=== PATIENT | male | born 1985 | race Caucasian/White ===

== ENCOUNTER 2021-03-21 00:16 | Emergency (ER) | payer OTHER ==
[~2021-03-21] VITALS: Ht 165.1 cm; Wt 77.1 kg
[2021-03-21 00:16] VITALS: BP 159/108
[2021-03-21 01:07] LABS: Basophils # (auto) 0.1 10 ^3/uL (0-0.2); Basophils % (auto) 0.9 % (0.0-2.0); Eosinophils # (auto) 0.2 10 ^3/uL (0-0.8); Eosinophils % (auto) 2.7 % (0.0-7.0); Hematocrit 45.7 % (41.0-53.0); Hemoglobin 15.9 g/dL (13.5-17.5); Lymphocytes # (auto) 2.4 10 ^3/uL (0.4-5.4); Lymphocytes % (auto) 34.9 % (10.0-50.0); Mean Corpuscular Hgb Conc. 34.8 g/dL (32.0-36.0); Mean Corpuscular Volume 86.1 fL (80.0-100.0); Monocytes # (auto) 0.4 10 ^3/uL (0-1.3); Monocytes % (auto) 5.8 % (0.0-12.0); Neutrophils # (auto) 3.8 10 ^3/uL (1.6-8.6); Neutrophils % (auto) 55.7 % (37.0-80.0); Nucleated Red Blood Cells % 0.1 %; Platelet Count (auto) 260 10^3/uL (140-450); Red Blood Cells 5.31 10^6/uL (4.5-5.90); Red Cell Distribution Width 12.8 % (11.8-14.3); White Blood Cell 6.7 10^3/uL (4.4-10.8)
[2021-03-21 01:23] LABS: Alanine Aminotransferase 43 U/L (16-61); Albumin 4.2 g/dL (3.4-5.0); Anion Gap 10 (5-15); Aspartate Aminotransferase 27 U/L (15-37); BUN/Creatinine Ratio 11.4; Blood Alcohol < 3.0 mg/dL (0-5); Blood Urea Nitrogen 9 mg/dL (7-18); Calcium 8.7 mg/dL (8.5-10.1); Carbon Dioxide 26 mmol/L (21-32); Chloride 104 mmol/L (98-107); GFR African American 145 mL/min; GFR Non-African American 120 mL/min; Glucose 118 mg/dL (74-106); Potassium 3.3 mmol/L (3.5-5.1); Sodium 140 mmol/L (136-145)
[2021-03-21 01:26] LABS: Alkaline Phosphatase 160 U/L (45-117); Bilirubin, Total 0.4 mg/dL (0.2-1.0); Total Protein 7.6 g/dL (6.4-8.2)
[2021-03-21 02:10] LABS: Urine Bacteria FEW /hpf (None Seen); Urine Blood Negative /uL (Negative); Urine Specific Gravity 1.018 (1.001-1.035); Urine WBC 1 /hpf (0 - 3)
[2021-03-21 02:20] LABS: Alcohol, Urine < 3.0 mg/dL (0-10); Amphetamine Screen, Urine NEGATIVE (NEGATIVE); Barbiturate Scree,Urine NEGATIVE (NEGATIVE); Benzodiazephine Screen, Urine NEGATIVE (NEGATIVE); Cannabinoid Screen, Urine NEGATIVE (NEGATIVE); Cocaine Screen, Urine NEGATIVE (NEGATIVE); Opiate Scree,Urine NEGATIVE (NEGATIVE); Phencyclidine Screen, Urine NEGATIVE (NEGATIVE)
== END 2021-03-21 02:48 | disposition home or self-care (01) ==
LOC: ER 00:21
DX: G47.00 Insomnia, unspecified (principal); F41.9 Anxiety disorder, unspecified
CPT/HCPCS: 36415; 80053; 80307; 80320; 81001; 85025

== ENCOUNTER 2022-07-22 19:54 | Emergency (ER) | payer MEDICAID, OTHER ==
[~2022-07-22] VITALS: Ht 165.1 cm; Wt 170.0 kg
[2022-07-22] MEDS ORDERED: amLODIPine BESYLATE 5 MG TAB PO ONE (21:30)
[2022-07-22 22:15] VITALS: BP 130/93
[2022-07-22] MEDS ORDERED: hydrOXYzine HCL 10 MG TAB PO ONE (22:15)
[2022-07-22] MEDS ORDERED: LORazepam 0.5 MG TAB PO ONE (22:15)
== END 2022-07-22 22:28 | disposition home or self-care (01) ==
LOC: ER 19:55
DX: I10 Essential (primary) hypertension (principal); F41.9 Anxiety disorder, unspecified; F32.9 Major depressive disorder, single episode, unspecified
CPT/HCPCS: 93005

== ENCOUNTER 2024-06-01 15:47 | Inpatient (IN) | payer MEDICAID, OTHER ==
[~2024-06-01] VITALS: Ht 165.1 cm; Wt 97.8 kg
[2024-06-01] MEDS ORDERED: HYDROcodone-ACET 10/325MG TAB PO ONE (16:15)
[2024-06-01 16:21] LABS: Basophils # (auto) 0.1 10 ^3/uL (0-0.2); Basophils % (auto) 1.2 % (0.0-2.0); Eosinophils # (auto) 0.1 10 ^3/uL (0-0.8); Eosinophils % (auto) 1.3 % (0.0-7.0); Hematocrit 44.9 % (41.0-53.0); Hemoglobin 15.5 g/dL (13.5-17.5); Lymphocytes # (auto) 2.3 10 ^3/uL (0.4-5.4); Lymphocytes % (auto) 26.6 % (10.0-50.0); Mean Corpuscular Hemoglobin 29.5 pg (28.0-32.0); Mean Corpuscular Hgb Conc. 34.5 g/dL (32.0-36.0); Mean Corpuscular Volume 85.4 fL (80.0-100.0); Monocytes # (auto) 0.5 10 ^3/uL (0-1.3); Monocytes % (auto) 5.6 % (0.0-12.0); Neutrophils # (auto) 5.7 10 ^3/uL (1.6-8.6); Neutrophils % (auto) 65.3 % (37.0-80.0); Nucleated Red Blood Cells % 0.1 %; Red Blood Cells 5.26 10^6/uL (4.5-5.90); Red Cell Distribution Width 15.1 % (11.8-14.3); White Blood Cell 8.7 10^3/uL (4.4-10.8)
[2024-06-01 16:23] VITALS: PULSE 71; RESP 19; O2SAT 96
[2024-06-01] MEDS: KETOROLAC TROMETH 60MG/2ML VIAL IM ONE (16:37)
[2024-06-01 16:45] LABS: Chloride 106 mmol/L (98-107); Potassium 3.7 mmol/L (3.5-5.1); Sodium 140 mmol/L (136-145)
[2024-06-01 16:46] LABS: Anion Gap 11 (5-15); Calcium 9.6 mg/dL (8.7-10.4); Carbon Dioxide 23 mmol/L (20-30)
[2024-06-01 16:51] LABS: Glucose 102 mg/dL (74-106)
[2024-06-01 16:53] LABS: BUN/Creatinine Ratio 8.2 (10.0-20.0); Blood Urea Nitrogen 6 mg/dL (9-23)
[2024-06-01 17:45] LABS: Urine Bacteria None Seen /hpf (None Seen)
[2024-06-01 17:48] LABS: Urine Blood Negative /uL (Negative); Urine Clarity Clear (Clear); Urine Color Yellow (Yellow); Urine Hyaline Cast FEW /lpf (0 - 2); Urine Mucus FEW (None Seen); Urine Protein, UAD 1+ (Negative); Urine Urobilinogen Normal (Negative); Urine WBC 3 /hpf (0 - 3); Urine pH 5.5 (5.0-9.0)
[2024-06-01] MEDS ORDERED: HYDROmorphone HCL 2 MG/ML VL/or syr IV PRN (18:15)
[2024-06-01] MEDS ORDERED: ONDANSETRON HCL 4 MG/2 ML VIAL IV PRN (18:15)
[2024-06-01] MEDS ORDERED: ACETAMINOPHEN 325 MG TAB PO PRN (18:15)
[2024-06-01] MEDS ORDERED: DOCUSATE SOD 100 MG CAP PO PRN (18:15)
[2024-06-01] MEDS: QUEtiapine FUMARATE 100 MG TAB PO SCH (21:43)
[2024-06-01] MEDS: amLODIPine BESYLATE 5 MG TAB PO SCH (21:44)
[2024-06-01] MEDS ORDERED: amLODIPine BESYLATE 5 MG TAB PO SCH (22:00)
[2024-06-01] MEDS ORDERED: QUEtiapine FUMARATE 100 MG TAB PO SCH (22:00)
[2024-06-01] MEDS: SODIUM CHLOR 0.9% PF (SALINE LOCK) 10ML VIAL/SYR IV SCH (22:07)
[2024-06-01 22:26] VITALS: BP 129/67; PULSE 103; RESP 18; TEMP 98.7; O2SAT 96
[2024-06-01 22:40] VITALS: RESP 18; O2SAT 96
[2024-06-01] MEDS ORDERED: QUET300T24 PO (22:54)
[2024-06-01] MEDS ORDERED: AMLO1TAB22 PO (22:54)
[2024-06-02 01:00] VITALS: BP 129/67; PULSE 103; RESP 18; TEMP 98.7; O2SAT 96
[2024-06-02 05:00] VITALS: BP 142/79; PULSE 112; RESP 20; TEMP 98.4; O2SAT 95
[2024-06-02] MEDS: ENOXAPARIN SOD 40 MG/0.4 ML SYRINGE SC SCH (08:48)
[2024-06-02] MEDS: HYDROcodone-ACET 5/325MG TAB PO PRN (08:48)
[2024-06-02 08:52] VITALS: BP 121/74; PULSE 103; RESP 19; TEMP 97.7; O2SAT 98
[2024-06-02 12:45] VITALS: BP 139/70; PULSE 94; RESP 19; TEMP 97.9; O2SAT 96
[2024-06-02 16:37] VITALS: BP 135/66; PULSE 103; RESP 21; TEMP 98.4; O2SAT 95
[2024-06-02] MEDS ORDERED: QUEtiapine FUMARATE 100 MG TAB PO SCH (18:00)
[2024-06-02 21:00] VITALS: BP 136/70; PULSE 111; RESP 20; TEMP 97.6; O2SAT 96
[2024-06-02] MEDS ORDERED: amLODIPine BESYLATE 5 MG TAB PO SCH (21:10)
[2024-06-03 01:00] VITALS: BP_SYST 106; BP_SYST 111; BP_DIAS 60; BP_DIAS 61; PULSE 69; PULSE 99; RESP 20; TEMP 97.8; O2SAT 94; O2SAT 97
[2024-06-03 05:00] VITALS: BP 129/72; PULSE 97; RESP 20; TEMP 97.9; O2SAT 97
[2024-06-03 08:27] VITALS: BP 143/87; PULSE 101; RESP 20; TEMP 98.3; O2SAT 97
[2024-06-03] MEDS ORDERED: CARI-277 PO (10:09)
[2024-06-03] MEDS ORDERED: HYDR-4902 PO (10:10)
== END 2024-06-03 11:00 | disposition home or self-care (01) | DRG 563 ==
LOC: ER 15:47 → OVERFLOW 18:07 → WEST WING 22:26
PROVIDERS: ADMIT Internal Medicine; ATTEND Family Medicine
DX: S39.011A Strain of muscle, fascia and tendon of abdomen, initial encounter (principal); K40.20 Bilateral inguinal hernia, without obstruction or gangrene, not specified as recurrent; F41.9 Anxiety disorder, unspecified; F31.9 Bipolar disorder, unspecified; G47.00 Insomnia, unspecified; X58.XXXA Exposure to other specified factors, initial encounter; Y93.89 Activity, other specified; Y92.89 Other specified places as the place of occurrence of the external cause; Y99.8 Other external cause status
CPT/HCPCS: 36415; 74176; 80048; 81001; 85025; 93005; 97110; 97116; 97163; 97530; G0378; J1885